=== PATIENT | female | born 1945 | race African-American/Black ===

== ENCOUNTER 2024-12-29 13:35 | Emergency (ER) | payer BC, MEDICARE ==
[~2024-12-29] VITALS: Ht 157.5 cm; Wt 58.5 kg
[~2024-12-29 13:35] MED LIST: AMLO5TAB88 MT; ASPI-1497 MT; ATOR10TA; HYDR50TA40 MT; LEVO13CA2
[2024-12-29 14:03] VITALS: TEMP 36.7; O2SAT 98
[2024-12-29 14:29] LABS: CLARITY URINE CLEAR (CLEAR); COLOR URINE YELLOW (YELLOW); GLUCOSE URINE NEGATIVE (NEGATIVE); KETONES URINE NEGATIVE (NEGATIVE); LEUKOCYTE ESTERASE URINE 2+ (NEGATIVE); NITRITE URINE NEGATIVE (NEGATIVE); OCCULT BLOOD URINE NEGATIVE (NEGATIVE); PH URINE 5.5 (4.5-8.0); PROTEIN URINE NEGATIVE (NEGATIVE); SPECIFIC GRAVITY URINE 1.014 (1.005-1.030)
[2024-12-29 14:54] LABS: BACTERIA URINE TRACE; MUCUS URINE TRACE /lpf (< = 2+); SQUAMOUS EPITHELIAL CELL URINE 2+ /lpf (RARE/1+)
[2024-12-29 14:56] LABS: RBC URINE 0-2 /hpf (0-2)
[2024-12-29 15:09] LABS: CHLORIDE 103 mEq/L (98-107); POTASSIUM 3.7 mEq/L (3.5-5.1); SODIUM 141 mEq/L (136-145)
[2024-12-29 15:10] LABS: CARBON DIOXIDE 28 mEq/L (21-32)
[2024-12-29 15:11] LABS: CALCIUM 9.9 mg/dL (8.7-10.4)
[2024-12-29 15:15] VITALS: TEMP 98.1
[2024-12-29 15:15] LABS: CREATININE 0.9 mg/dL (0.6-1.0); GLUCOSE 171 mg/dL (70-105); UREA NITROGEN BLOOD 10 mg/dL (9-23)
[2024-12-29] MEDS: ACETAMINOPHEN 325MG TABLET PO ONE (15:15)
[2024-12-29] MEDS: ONDANSETRON HCL 4MG TABLET PO ONE (15:16)
[2024-12-29 15:22] LABS: BASOPHILS % 0.3 % (0.0-2.0); EOSINOPHILS % 0.2 % (0.0-5.0); HEMATOCRIT. 41.1 % (36.0-48.0); HEMOGLOBIN. 13.6 g/dL (12.0-16.0); LYMPHOCYTES % 13.4 % (20.0-50.0); MEAN CORPUSCULAR HGB CONC 33.2 g/dL (31.0-37.0); MEAN CORPUSCULAR VOLUME 90.5 fL (81.0-99.0); MEAN PLATELET VOLUME 10.3 fl (7.4-10.4); MONOCYTES % 8.6 % (2.0-8.0); NEUTROPHILS % 77.5 % (40.0-76.0); PLATELET 200 x1000/uL (130-400); RED BLOOD CELL COUNT 4.54 mill/uL (4.2-5.4); WHITE BLOOD COUNT 7.4 x1000/uL (4.5-11.0)
[2024-12-29] MEDS ORDERED: ONDA-239 PO (15:38)
[2024-12-29] MEDS ORDERED: CEPH500C2 MT (15:38)
[2024-12-29 15:52] VITALS: BP 165/90; PULSE 95; RESP 16; O2SAT 100
== END 2024-12-29 15:53 | disposition home or self-care (01) ==
LOC: ER 13:35
DX: G44.209 Tension-type headache, unspecified, not intractable (principal); T50.905A Adverse effect of unspecified drugs, medicaments and biological substances, initial encounter; E78.00 Pure hypercholesterolemia, unspecified; I10 Essential (primary) hypertension; Z79.82 Long term (current) use of aspirin; Y92.89 Other specified places as the place of occurrence of the external cause
CPT/HCPCS: 99284; 70450; 80048; 81003; 85025; 36415; Q0162

== ENCOUNTER 2025-01-11 16:09 | Emergency (ER) | payer BC ==
[~2025-01-11] VITALS: Ht 157.5 cm; Wt 57.0 kg
[~2025-01-11 16:09] MED LIST changes: +CEPH500C2 MT; +ONDA-239 PO
[2025-01-11 16:15] VITALS: O2SAT 97
[2025-01-11 16:49] LABS: BASOPHILS % 0.6 % (0.0-2.0); EOSINOPHILS % 0.2 % (0.0-5.0); HEMATOCRIT. 41.9 % (36.0-48.0); HEMOGLOBIN. 13.8 g/dL (12.0-16.0); LYMPHOCYTES % 29.6 % (20.0-50.0); MEAN PLATELET VOLUME 9.7 fl (7.4-10.4); MONOCYTES % 10.4 % (2.0-8.0); NEUTROPHILS % 59.2 % (40.0-76.0); PLATELET 241 x1000/uL (130-400); RED BLOOD CELL COUNT 4.60 mill/uL (4.2-5.4); RED CELL DISTRIBUTION WIDTH 14.2 % (11.6-14.6)
[2025-01-11 16:50] LABS: CLARITY URINE CLEAR (CLEAR); COLOR URINE YELLOW (YELLOW); GLUCOSE URINE NEGATIVE (NEGATIVE); KETONES URINE TRACE (NEGATIVE); LEUKOCYTE ESTERASE URINE 2+ (NEGATIVE); NITRITE URINE NEGATIVE (NEGATIVE); OCCULT BLOOD URINE NEGATIVE (NEGATIVE); PH URINE 5.0 (4.5-8.0); PROTEIN URINE NEGATIVE (NEGATIVE); SPECIFIC GRAVITY URINE 1.018 (1.005-1.030); UROBILINOGEN URINE 1.0 E.U./dL (0.2-1.0)
[2025-01-11 17:02] LABS: INR 1.1
[2025-01-11 17:04] LABS: CREATININE 0.9 mg/dL (0.6-1.0); UREA NITROGEN BLOOD 9 mg/dL (9-23)
[2025-01-11 17:05] LABS: BACTERIA URINE 1+; RBC URINE 0-2 /hpf (0-2); SQUAMOUS EPITHELIAL CELL URINE FEW /lpf (RARE/1+)
[2025-01-11 17:06] LABS: ASPARTATE AMINOTRANSFERASE 31 IU/L (<34); BILIRUBIN DIRECT 0.2 mg/dL (<=3.0); BILIRUBIN TOTAL 0.6 mg/dL (0.1-1.0); PHOSPHORUS 3.1 mg/dL (2.5-4.9); PROTEIN TOTAL 7.0 g/dL (6.0-8.3); TROPONIN I HIGH SENSITIVITY 25 ng/L (3.0-34)
[2025-01-11 17:10] LABS: T4 FREE 1.68 ng/dL (0.89-1.76)
[2025-01-11] MEDS: ONDANSETRON 4MG ODT PO ONE (17:26)
[2025-01-11] MEDS: ACETAMINOPHEN 325MG TABLET PO ONE (18:06)
[2025-01-11] MEDS: SULFAMETHOXAZOLE/TRIMETHOPRIM 800/160MG TABLET PO ONE (18:56)
[2025-01-11] MEDS: IBUPROFEN 400MG TABLET PO ONE (18:56)
[2025-01-11] MEDS ORDERED: SULF1TAB48 MT (19:27)
[2025-01-11] MEDS: HYDRALAZINE 20MG/ML VIAL IV ONE (19:27)
[2025-01-11 19:40] VITALS: BP 165/87; PULSE 85; RESP 14; TEMP 36.8; O2SAT 97
== END 2025-01-11 20:06 | disposition home or self-care (01) ==
LOC: ER 16:09
DX: N39.0 Urinary tract infection, site not specified (principal); R53.83 Other fatigue; R51.9 Headache, unspecified; I10 Essential (primary) hypertension; E78.00 Pure hypercholesterolemia, unspecified; R06.02 Shortness of breath; Z79.899 Other long term (current) drug therapy; Z79.82 Long term (current) use of aspirin
CPT/HCPCS: 99285; 70450; 71045; 80076; 80048; 81003; 83880; 84439; 83605; 83690; 83735; 84100; 84443; 85025; 85610; 87040; 87086; 84484; 36415; 84145; 93005; 84481; Q0162

== ENCOUNTER 2025-01-25 17:17 | Emergency (ER) | payer BC ==
[~2025-01-25] VITALS: Ht 157.5 cm; Wt 53.0 kg
[~2025-01-25 17:17] MED LIST changes: +SULF1TAB48 MT
[2025-01-25 17:25] VITALS: O2SAT 99
[2025-01-25 18:00] LABS: BASOPHILS % 0.6 % (0.0-2.0); EOSINOPHILS % 0.1 % (0.0-5.0); HEMATOCRIT. 35.9 % (36.0-48.0); HEMOGLOBIN. 12.1 g/dL (12.0-16.0); LYMPHOCYTES % 18.6 % (20.0-50.0); MEAN PLATELET VOLUME 8.7 fl (7.4-10.4); MONOCYTES % 10.6 % (2.0-8.0); NEUTROPHILS % 70.1 % (40.0-76.0); PLATELET 246 x1000/uL (130-400); RED BLOOD CELL COUNT 3.93 mill/uL (4.2-5.4); RED CELL DISTRIBUTION WIDTH 13.8 % (11.6-14.6)
[2025-01-25 18:17] LABS: CREATININE 1.0 mg/dL (0.6-1.0)
[2025-01-25 18:18] LABS: TROPONIN I HIGH SENSITIVITY 19 ng/L (3.0-34); UREA NITROGEN BLOOD 14 mg/dL (9-23)
[2025-01-25] MEDS: ONDANSETRON 4MG ODT PO SCH (20:00)
[2025-01-25] MEDS: ACETAMINOPHEN 500MG TABLET PO SCH (20:00)
[2025-01-25 20:07] LABS: CLARITY URINE CLEAR (CLEAR); COLOR URINE YELLOW (YELLOW); GLUCOSE URINE NEGATIVE (NEGATIVE); KETONES URINE NEGATIVE (NEGATIVE); LEUKOCYTE ESTERASE URINE NEGATIVE (NEGATIVE); NITRITE URINE NEGATIVE (NEGATIVE); OCCULT BLOOD URINE NEGATIVE (NEGATIVE); PH URINE 5.0 (4.5-8.0); PROTEIN URINE NEGATIVE (NEGATIVE); SPECIFIC GRAVITY URINE 1.009 (1.005-1.030); UROBILINOGEN URINE 0.2 E.U./dL (0.2-1.0)
[2025-01-25] MEDS: HYDRALAZINE HCL 50MG TABLET PO ONE (21:00)
[2025-01-25] MEDS ORDERED: ONDA-239 PO (22:03)
[2025-01-25 22:30] VITALS: BP 160/71; PULSE 99; RESP 16; TEMP 36.8; O2SAT 99
== END 2025-01-25 22:35 | disposition home or self-care (01) ==
LOC: ER 17:17
DX: R11.0 Nausea (principal); R30.0 Dysuria; I10 Essential (primary) hypertension; E03.9 Hypothyroidism, unspecified; E78.00 Pure hypercholesterolemia, unspecified; Z90.710 Acquired absence of both cervix and uterus; Z79.899 Other long term (current) drug therapy
CPT/HCPCS: 99284; 80048; 81003; 85025; 84484; 36415; 93005; Q0162